=== PATIENT | female | born 1990 | race Caucasian/White ===

== ENCOUNTER → 2016-09-01 | Outpatient (REF) ==
[~2016-09-01] MED LIST: PRENATAL1 TA1 PO
== END ==
LOC: ZLAB.WCH 10:12
DX: Z01.89 Encounter for other specified special examinations (principal)

== ENCOUNTER → 2017-04-15 | Outpatient (REF) | LOC: ZLAB.WCH 18:20 | DX: Z01.89 Encounter for other specified special examinations (principal) ==

== ENCOUNTER 2017-06-06 16:45 | Emergency (ER) | payer BC ==
[~2017-06-06] VITALS: Ht 162.6 cm; Wt 54.5 kg
[2017-06-06 16:53] VITALS: TEMP 97.8
[2017-06-06] MEDS ORDERED: WELLBUTRIN XL300 M1 PO (16:55)
[2017-06-06] MEDS ORDERED: ZOFRAN ODT4 MG (17:36)
[2017-06-06] MEDS ORDERED: SEROQUEL XR300 MG PO (17:36)
[2017-06-06 18:06] LABS: COLLECTION METHOD CLEAN CATCH
[2017-06-06 18:09] LABS: BASO % 0.2 % (0.0-2.0); EOS % 0.3 % (0-4.0); GRAN # 8.7 (1.4-6.5); GRAN % 70.5 % (42.2-75.2); HEMATOCRIT 45.4 % (37.0-47.0); HEMOGLOBIN 15.6 g/dl (12.5-16.0); LYMPH # 2.8 (1.2-3.4); LYMPH % 22.7 % (20.0-51.0); MEAN CELL VOLUME 90 fl (80.0-100.0); MEAN CORPUSCULAR HEMOGLOBIN 31 pg (27.0-31.0); MEAN CORPUSCULAR HGB CONC 34 g/dl (33.0-37.0); MEAN PLATELET VOLUME 11.3 fl (7.4-10.4); MONO # 0.7 (0.1-0.6); MONO % 5.6 % (1.7-9.3); PLATELET COUNT 146 K/mm3 (130-400); RED BLOOD COUNT 5.07 M/mm3 (4.10-5.30); WHITE BLOOD COUNT 12.3 K/mm3 (4.8-10.8)
[2017-06-06 18:13] LABS: PH 5 (5-8); URINE APPEARANCE Clear; URINE BACTERIA None Seen /hpf; URINE BILIRUBIN Negative (NEGATIVE); URINE BLOOD Negative (NEGATIVE); URINE COLOR Yellow; URINE GLUCOSE Negative (NEGATIVE); URINE KETONE Negative (NEGATIVE); URINE LEUKOCYTE ESTERASE Negative (NEGATIVE); URINE PROTEIN(semi-quant) 1+ (NEGATIVE); URINE RBC 0-2 /hpf; URINE UROBILINOGEN Negative (NEGATIVE); URINE WBC 0-2 /hpf
[2017-06-06 18:20] LABS: ADJUSTED CALCIUM 8.8 mg/dL (8.4-10.2); BILIRUBIN,TOTAL 0.5 mg/dL (0.0-1.0); CALCIUM 9.6 mg/dL (8.4-10.2); CREATININE, serum 0.85 mg/dL (0.52-1.25); POTASSIUM 3.7 mmol/L (3.4-5.0); TOTAL PROTEIN 8.2 gm/dL (6.4-8.2)
[2017-06-06 18:36] LABS: PROLACTIN 91.9 ng/mL (3.0-18.6)
[2017-06-06] MEDS ORDERED: KEPPRA 500MG500 MG PO (19:44)
[2017-06-06 20:39] VITALS: BP 99/70; PULSE 84
== END 2017-06-06 20:34 | disposition home or self-care (01) ==
LOC: COL.ER 16:45
PROVIDERS: Emergency Medicine
DX: R56.9 Unspecified convulsions (principal); Z98.890 Other specified postprocedural states
CPT/HCPCS: J1953; J2405

== ENCOUNTER → 2018-09-12 | Outpatient (CLI) | payer BC ==
[~2018-09-12] MED LIST changes: +KEPPRA 500MG500 MG PO; +SEROQUEL XR300 MG PO; +WELLBUTRIN XL300 M1 PO; +ZOFRAN ODT4 MG
== END ==
LOC: MC.RAD 13:47
DX: D24.1 Benign neoplasm of right breast (principal); N64.52 Nipple discharge